=== PATIENT | female | born 1975 | race Caucasian/White ===

== ENCOUNTER → 2017-06-20 | Day surgery (SDC) | payer OTHER ==
--- NOTE | 2017-06-21 16:45 | PATH ---
Cytology Non-Gynecological Report Patient Name: KAREEM REGAN [facility]. Rec. #: [id number] /Age/Gender: 1975 (Age: 41) / F Account: [id number] Location: Taken: 06/20/2017 Received: 06/20/2017 Reported: 06/21/2017 Physicians: Michelle Gutiérrez M.D. Specimen(s) Received THYROID FNA RIGHT Clinical History Thyroid nodule 1.44 x 1.22 x 1.18 cm Final Diagnosis THYROID, RIGHT, FINE NEEDLE ASPIRATION: SATISFACTORY FOR EVALUATION. BETHES[place] CLASS II: BENIGN. CYTOLOGIC FINDINGS SHOW A BENIGN FOLLICULAR NODULE WITH FEATURES SUGGESTIVE OF LYMPHOCYTIC THYROIDITIS. FOLLICULAR CELLS DISPERSED CLUSTERS AND AGGREGATES IN A BACKGROUND OF SCATTERED LYMPHOCYTES, RARE MACROPHAGES, AND LYMPHOID TANGLES PRESENT. Comment: Suggest clinical/radiologic and serologic correlation. Electronically Signed Erica Shelby M.D. Gross Description Received are eight direct smears, four of which are air-dried and Diff-Quik stained, and four of which are alcohol fixed and Pap stained. Also received is 20 ml of bloody formalin from which one cellblock is prepared.
== END | disposition home or self-care (01) ==
LOC: JRADIR 09:20
PROVIDERS: ATTEND Surgery
PROC: 0G9H3ZX Drainage of Right Thyroid Gland Lobe, Percutaneous Approach, Diagnostic (ICD-10-PCS; principal; 2017-06-20)
DX: E04.1 Nontoxic single thyroid nodule (principal)
CPT/HCPCS: 76942

== ENCOUNTER → 2020-11-04 | Day surgery (SDC) | payer OTHER | END | disposition home or self-care (01) | LOC: JRADIR 09:36 | PROVIDERS: ATTEND Internal Medicine Endocrinology, Diabetes & Metabolism | PROC: 0G9H3ZX Drainage of Right Thyroid Gland Lobe, Percutaneous Approach, Diagnostic (ICD-10-PCS; principal; 2020-11-04) | DX: E04.1 Nontoxic single thyroid nodule (principal) | CPT/HCPCS: 10007; 76942 ==

== ENCOUNTER 2023-03-01 12:38 | Day surgery (SDC) | payer OTHER ==
[2023-03-01] MEDS ORDERED: IRON SUCROSE INJECTION 200 MG in SODIUM CHLORIDE 100 ML IVPB ONE (13:30)
[2023-03-01 14:01] VITALS: BP 110/62; PULSE 89; RESP 17; TEMP 98.4
== END 2023-03-01 13:00 | disposition home or self-care (01) ==
LOC: FINFUSION 12:38 → FM/S 12:39 → FINFUSION 13:00
PROVIDERS: ATTEND Family Medicine
PROC: 3E033GC Introduction of Other Therapeutic Substance into Peripheral Vein, Percutaneous Approach (ICD-10-PCS; principal; 2023-03-01)
DX: D50.9 Iron deficiency anemia, unspecified (principal)
CPT/HCPCS: 96365; J1756

== ENCOUNTER 2023-08-05 04:47 | Day surgery (SDC) | payer OTHER ==
[2023-08-03 12:14] VITALS: BMI 22.8
[2023-08-05 09:38] VITALS: TEMP 97.8
[2023-08-05 10:14] VITALS: BP 111/68; PULSE 63; RESP 12
== END 2023-08-05 10:27 | disposition home or self-care (01) ==
LOC: JASU-ENDO 04:47
PROVIDERS: ATTEND Internal Medicine Gastroenterology
PROC: 0DB98ZX Excision of Duodenum, Via Natural or Artificial Opening Endoscopic, Diagnostic (ICD-10-PCS; 2023-08-05)
PROC: 0DB78ZX Excision of Stomach, Pylorus, Via Natural or Artificial Opening Endoscopic, Diagnostic (ICD-10-PCS; 2023-08-05)
PROC: 0DB68ZX Excision of Stomach, Via Natural or Artificial Opening Endoscopic, Diagnostic (ICD-10-PCS; 2023-08-05)
PROC: 0DJD8ZZ Inspection of Lower Intestinal Tract, Via Natural or Artificial Opening Endoscopic (ICD-10-PCS; principal; 2023-08-05 09:00)
DX: Z12.11 Encounter for screening for malignant neoplasm of colon (principal); K29.50 Unspecified chronic gastritis without bleeding; B96.81 Helicobacter pylori [H. pylori] as the cause of diseases classified elsewhere
CPT/HCPCS: 81025; 88305-TC; 88341-TC; 88342-TC